=== PATIENT | male | born 1975 | race Caucasian/White ===

== ENCOUNTER 2022-11-10 15:09 | Emergency (ER) | payer BC ==
--- OUTSIDE RECORDS SUMMARY | 2022-11-10 15:12 | XMS REPORT | Continuity of Care Document ---
:1975 Author Organization [facility] t Address [address] [facility] [address] [place] [id number] Care Team Providers Name Role Phone DR NABIL CONDE Attending Clinician Unavailable DR NABIL CONDE Admitting Clinician Unavailable Problems This patient has no known problems. Allergies, Adverse Reactions, Alerts This patient has no known allergies or adverse reactions. Medications This patient has no known medications. Procedures This patient has no known procedures. Results Test Description Test Time Test Comments Results Result Comments Source WOUND/SKIN/ABS.&GRAMSTAIN C 2019-04-17 09:49:00 Test Item Value Reference Range Interpretation Comme nts Culture Observations (test code = COB1) NO GROWTH IN 5 DAYS; THIO H ELD 5 DAYS Direct Exam (test code = DE1) FEW WHITE BLOOD CELLS SEEN Direct Exam (test code = DE2) RARE GRAM POSITIVE COCCI
[2022-11-10] MEDS ORDERED: LIDOCAINE 1% W/EPI 1:100,000 10 ML VIAL ONE (15:43)
[2022-11-10] MEDS ORDERED: TDAP (DIPHTH,PERTUSS(ACELL),TET VAC) 0.5 ML VIAL IMVAC ONE (15:43)
[2022-11-10 17:04] VITALS: BP 136/89; TEMP 98.3; O2SAT 100
--- NOTE | 2022-11-25 15:17 | EDPHYS ---
Physician Documentation [facility] Name: Kevin Vinson Age: 47 yrs Sex: Male : 1975 Arrival Date: 11/10/2022 Time: 15:10 Bed 11 Private MD: Americo Etienne T ED Physician Luis Armando Tabares HPI: 11/10 15:35 This 47 yrs old Male presents to ER via Ambulatory with complaints of Head cp Injury-Adult, Laceration To Forehead. 15:35 The patient or guardian reports injury, a laceration, irregular. The complaints affect cp the forehead. Context of injury: The problem was sustained at work, resulted from a direct blow, metal pipe. Onset: The symptoms/episode began/occurred just prior to arrival. Associated signs and symptoms: The patient has no apparent associated signs or symptoms. Historical: - Allergies: 15:16 PENICILLINS; hb - Home Meds: 15:16 None [Active]; hb - PMHx: 15:16 None; hb - PSHx: 15:16 None; hb - Immunization history:: Last tetanus immunization: < 10 years ago. - Social history:: Smoking status: Patient denies any tobacco usage or history of. ROS: 15:40 Skin: Positive for laceration(s), of the forehead. cp 15:40 Constitutional: Negative for body aches, chills, fever, poor PO intake. cp 15:40 Eyes: Negative for injury, pain, redness, and discharge. cp 15:40 Neck: Negative for pain with movement, pain at rest, stiffness. 15:40 Cardiovascular: Negative for chest pain, palpitations. 15:40 Respiratory: Negative for cough, shortness of breath, wheezing. 15:40 Abdomen/GI: Negative for abdominal pain, nausea and vomiting. 15:40 Neuro: Negative for altered mental status, loss of consciousness, weakness. 15:40 All other systems are negative. Exam: 15:45 Constitutional: The patient appears in no acute distress, alert, awake, comfortable, cp well developed, well nourished. 15:45 Head/face: Noted is a laceration(s), that is deep, of the forehead, swelling, that is cp mild, of the forehead, tenderness, that is mild, of the forehead. 15:45 Eyes: Periorbital structures: appear normal, Pupils: equal, round, and reactive to light and accomodation, Extraocular movements: intact throughout, Lids and lashes: appear normal, bilaterally. 15:45 ENT: External ear(s): are unremarkable, Nose: is normal, Mouth: Lips: moist, Oral mucosa: moist, Posterior pharynx: Airway: no evidence of obstruction, patent. 15:45 Neck: C-spine: vertebral tenderness, is not appreciated, crepitus, is not appreciated, ROM/movement: is normal, is supple, without pain, no range of motions limitations. 15:45 Chest/axilla: Inspection: normal. 15:45 Cardiovascular: Rate: normal, Rhythm: regular. 15:45 Respiratory: the patient does not display signs of respiratory distress, Respirations: normal, no use of accessory muscles, no retractions, labored breathing, is not present. 15:45 Neuro: Orientation: to person, place \T\ time. Mentation: is normal, Cerebellar function: is grossly normal, Motor: moves all fours, strength is normal, Sensation: is normal, Gait: is steady, at a normal pace, without difficulty. Vital Signs: 15:14 BP 136 / 89; Pulse 61; Resp 16; Temp 98.3; Pulse Ox 100% on R/A; Weight 83.91 kg; hb Height 6 ft. 0 in. ; Pain 8/10; 15:14 Body Mass Index 25.09 (83.91 kg, 182.88 cm) hb 15:14 Pain Scale: Adult hb [place] Coma Score: 15:14 Eye Response: spontaneous(4). Motor Response: obeys commands(6). Verbal Response: hb oriented(5). Total: 15. 15:35 Eye Response: spontaneous(4). Motor Response: obeys commands(6). Verbal Response: cp oriented(5). Total: 15. 16:24 Eye Response: spontaneous(4). Motor Response: obeys commands(6). Verbal Response: cp oriented(5). Total: 15. Laceration: 16:21 Wound Repair of 2.5cm ( 1.0in ) subcutaneous laceration to forehead. Irregularly cp shaped.. Distal neuro/vascular/tendon intact. Anesthesia: Wound infiltrated with 3 mls of 1% lidocaine w/ Epi. Wound prep: Simple cleansing by me. Skin closed with 5 6-0 Prolene using interrupted sutures and sterile technique. Dressed with Bacitracin, bandaid. Patient tolerated well. MDM: 15:23 Patient medically screened. cp 16:24 Data reviewed: vital signs, nurses notes. cp 16:24 Test considered but Not performed: CT: head. cp 11/10 15:32 Order name: Dressing - Wound; Complete Time: 16:27 cp 11/10 15:32 Order name: Gloves, Sterile; Complete Time: 15:45 cp 11/10 15:32 Order name: Setup Suture Tray; Complete Time: 15:45 cp 11/10 15:32 Order name: Wound Care; Complete Time: 16:26 cp 11/10 16:21 Order name: Wound dressing; Complete Time: 16:27 cp Administered Medications: 15:45 Drug: Tetanus-Diphtheria Toxoid IM Adult 0.5 ml {Supervisor Crack Off: [employer] [facility] Exp: 07/22/2023. Lot #: [id number]. } Route: IM; Site: right deltoid; 15:45 Follow up: Response: (VIS) Vaccine information sheet provided today. Questions and/or [facility] concerns addressed. VIS edition date: Apr 09, 2021. 16:26 Follow up: Response: No adverse reaction [facility] 16:27 Drug: Lidocaine-Epinephrine Infiltration -1%: (1:100,000) 5 ml {Note: administered by [facility] PA. Richard} Volume: 20 ml; Route: Infiltration; Disposition: 19:01 Co-signature as Attending Physician, Luis Armando Tabares MD I reviewed the patient's care rn provided by the Advanced Practice Provider and agree with the diagnosis and treatment plan. Disposition Summary: 11/10/22 16:24 Discharge Ordered Location: Home cp Problem: new cp Symptoms: have improved cp Condition: Stable cp Diagnosis - Laceration without foreign body of unspecified part of head - forehead cp Followup: cp - With: Private Physician - When: 1 week - Reason: Staple/Suture removal Discharge Instructions: - Discharge Summary Sheet cp - Head Injury, Adult cp - Facial Laceration cp - Sutured Wound Care cp - Form - Excuse from Work, School, or Physical Activity cp Forms: - Medication Reconciliation Form cp - Thank You Letter cp - Antibiotic Education cp - Prescription Opioid Use cp Signatures: Luis Armando Tabares MD MD rn Ruben Landers PA PA cp Micaela Fox, RN RN hb Clara Tipton RN RN eh3
--- NOTE | 2022-11-25 15:17 | ER ---
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 Negative LOC. Reports mild dizziness. Denies vomiting. Coronavirus screen: At this time, the client does not indicate any symptoms associated with coronavirus-19. Ebola Screen: No symptoms or risks identified at this time. Initial Sepsis Screen: Does the patient meet any 2 criteria? No. Patient's initial sepsis screen is negative. Does the patient have a suspected source of infection? No. Patient's initial sepsis screen is negative. Risk Assessment: Do you want to hurt yourself or someone else? Patient reports no desire to harm self or others. 15:14 Method Of Arrival: Ambulatory 15:14 Acuity: DIVYA 4 ss 15:20 Mechanism of Injury: resulted from a direct blow, a solid object. eh3 15:20 Onset of symptoms was November 10, 2022. eh3 Triage Assessment: 15:20 General: Appears in no apparent distress. uncomfortable, Behavior is calm, cooperative, eh3 appropriate for age. Neuro: Level of Consciousness is awake, alert, obeys commands, Oriented to person, place, time, situation. 15:20 Neuro: Reports headache frontal area. eh3 Historical: - Allergies: 15:16 PENICILLINS; hb - Home Meds: 15:16 None [Active]; hb - PMHx: 15:16 None; hb - PSHx: 15:16 None; hb - Immunization history:: Last tetanus immunization: < 10 years ago. - Social history:: Smoking status: Patient denies any tobacco usage or history of. Screenin:20 [facility] ED Fall Risk Assessment (Adult) Score/Fall Risk Level 0 - 2 = Low Risk. Abuse eh3 screen: Denies threats or abuse. Denies injuries from another. Nutritional screening: No deficits noted. Tuberculosis screening: No symptoms or risk factors identified. Assessment: 15:20 General: Appears in no apparent distress. uncomfortable, Behavior is calm, cooperative, eh3 appropriate for age. Pain: Complains of pain in forehead. Neuro: Level of Consciousness is awake, alert, obeys commands, Oriented to person, place, time, situation, Speech is normal, Pupils are PERRLA. Cardiovascular: Capillary refill < 3 seconds Patient's skin is warm and dry. Respiratory: Airway is patent Respiratory effort is even, unlabored, Respiratory pattern is regular, symmetrical. GI: Abdomen is round non-distended. : No signs and/or symptoms were reported regarding the genitourinary system. EENT: No signs and/or symptoms were reported regarding the EENT system. Derm: Skin is pink, warm \T\ dry. Wound noted forehead Wound is quarter-sized superficial laceration, not bleeding. Musculoskeletal: Circulation, motion, and sensation intact. Range of motion: intact in all extremities. Vital Signs: 15:14 BP 136 / 89; Pulse 61; Resp 16; Temp 98.3; Pulse Ox 100% on R/A; Weight 83.91 kg; hb Height 6 ft. 0 in. ; Pain 8/10; 15:14 Body Mass Index 25.09 (83.91 kg, 182.88 cm) hb 15:14 Pain Scale: Adult hb [place] Coma Score: 15:14 Eye Response: spontaneous(4). Motor Response: obeys commands(6). Verbal Response: hb oriented(5). Total: 15. 15:35 Eye Response: spontaneous(4). Motor Response: obeys commands(6). Verbal Response: cp oriented(5). Total: 15. 16:24 Eye Response: spontaneous(4). Motor Response: obeys commands(6). Verbal Response: cp oriented(5). Total: 15. ED Course: 15:10 Patient arrived in ED. mr 15:10 Americo Etienne MD is Private Physician. mr 15:16 Triage completed. hb 15:16 Arm band placed on. hb 15:20 Patient has correct armband on for positive identification. Bed in low position. Call eh3 light in reach. 15:23 Ruben Landers PA is PHCP. cp 15:23 Luis Armando Tabares MD is Attending Physician. cp 15:36 Clara Tipton RN is Primary Nurse. eh3 16:29 No provider procedures requiring assistance completed. Patient did not have IV access eh3 during this emergency room visit. Administered Medications: 15:45 Drug: Tetanus-Diphtheria Toxoid IM Adult 0.5 ml {Transfer Specialist: [facility] Exp: 07/22/2023. Lot #: [id number]. } Route: IM; Site: right deltoid; 15:45 Follow up: Response: (VIS) Vaccine information sheet provided today. Questions and/or 3 concerns addressed. VIS edition date: Apr 09, 2021. 16:26 Follow up: Response: No adverse reaction 3 16:27 Drug: Lidocaine-Epinephrine Infiltration -1%: (1:100,000) 5 ml {Note: administered by 3 MATHEUS Ramos.} Volume: 20 ml; Route: Infiltration; Medication: 15:45 Vaccine Information Statement (VIS) provided today. Questions and/or concerns eh3 addressed. VIS edition date: April 09, 2021. Outcome: 16:24 Discharge ordered by . cp 16:30 Discharged to home ambulatory. 3 16:30 Condition: stable 16:30 Discharge instructions given to patient, Instructed on discharge instructions, follow up and referral plans. wound care, Demonstrated understanding of instructions, follow-up care, wound care. 16:38 Patient left the ED. 3 Signatures: Simons, Florencia Archana Clark RN RN ss Page, Corey, PA PA cp Baxter, Heather, RN RN Clara Tipton RN RN 3 Corrections: (The following items were deleted from the chart) 15:17 15:14 Acuity: IDVYA 3 hb 16:29 16:29 Neuro: Reports 3 3
== END 2022-11-10 16:38 | disposition home or self-care (01) ==
LOC: ER 15:09
PROC: 0HQ1XZZ Repair Face Skin, External Approach (ICD-10-PCS; principal; 2022-11-10)
DX: S01.81XA Laceration without foreign body of other part of head, initial encounter (principal); Z23 Encounter for immunization; Z88.0 Allergy status to penicillin
CPT/HCPCS: 90471; 99283